=== PATIENT | male | born 1960 | race Caucasian/White ===

== ENCOUNTER → 2016-10-09 14:29 | Outpatient (CLI) | payer BC | END | disposition home or self-care (01) | LOC: D.MRI 14:29 | DX: M54.32 Sciatica, left side (principal) ==

== ENCOUNTER 2017-12-19 10:43 | Emergency (ER) | payer BC ==
[~2017-12-19] VITALS: Ht 182.9 cm; Wt 95.5 kg
[2017-12-19 10:55] VITALS: Ht 182.9 cm; Wt 95.5 kg
[2017-12-19] MEDS ORDERED: DEXILANT30 MG PO (10:56)
[2017-12-19] MEDS ORDERED: CRESTOR5 MG PO (10:56)
[2017-12-19] MEDS ORDERED: PROVENTIL HFA6.7 GM INH (10:57)
[2017-12-19] MEDS ORDERED: LEVOXYL75 MCG PO (10:57)
[2017-12-19 11:26] LABS: BASOPHILS 0.2 % (0-2); EOSINOPHILS 2.4 % (0-7); HEMATOCRIT 43.3 % (42.0-54.0); HEMOGLOBIN 15.4 g/dL (13.5-17.5); IMMATURE GRANULOCYTES 0.2 % (0-5); LYMPHOCYTES 23.5 % (15-50); MCH 33.3 pg (26.0-34.0); MCHC 35.6 g/dL (31.0-37.0); MCV 93.7 fL (80.0-100.0); MONOCYTES 8.9 % (2-11); NEUTROPHILS 64.8 % (40-80); PLATELET COUNT 183 10x3/uL (130-400); RBC 4.62 10x6/uL (4.20-6.10); RDW 13.1 % (11.5-14.5); WBC 5.8 10x3/uL (4.8-10.8)
[2017-12-19 11:43] LABS: INR 0.87 (0.85-1.17); PROTIME 11.5 SECONDS (11.6-15.0)
[2017-12-19 11:45] LABS: D-DIMER-QUANTITATIVE < 0.27 ug/mLFEU (0.20-0.54)
[2017-12-19 11:49] LABS: ALBUMIN 3.7 g/dL (3.4-5.0); ALKALINE PHOSPHATASE 68 U/L (46-116); ALT (SGPT) 30 U/L (10-68); BILIRUBIN - TOTAL 0.87 mg/dL (0.2-1.3); CALC OSMOLALITY 282 mosm/kg (275-300); CALCIUM 9.4 mg/dL (8.5-10.1); CARBON DIOXIDE 25.4 mmol/L (21.0-32.0); CHLORIDE - SERUM 104 mmol/L (98-107); CREATININE - SERUM 1.2 mg/dL (0.6-1.3); GLUCOSE 123 mg/dL (74-106); POTASSIUM - SERUM 3.9 mmol/L (3.5-5.1); PROTEIN - SERUM 7.7 g/dL (6.4-8.2); SODIUM 141 mmol/L (136-145); UREA NITROGEN 14 mg/dL (7-18); eGFR NON AFRICAN AMERICAN 66 mL/min (90-120)
[2017-12-19 11:59] LABS: CKMB 0.5 U/L (0.0-3.6); CREATINE KINASE 71 UL (21-232); PRO BNP 65 pg/mL (0-125); TROPONIN-I < 0.017 ng/mL (0.000-0.060)
[2017-12-19] MEDS ORDERED: QVAR8.7 GM INH (13:40)
[2017-12-19] MEDS ORDERED: ATIVAN1 MG PO (13:40)
[2017-12-19 14:02] VITALS: BP 138/86
== END 2017-12-19 14:13 | disposition home or self-care (01) ==
LOC: D.ER 10:43
PROVIDERS: Family Medicine
DX: Z87.09 Personal history of other diseases of the respiratory system (principal); F41.9 Anxiety disorder, unspecified; R07.89 Other chest pain; E07.9 Disorder of thyroid, unspecified; K21.9 Gastro-esophageal reflux disease without esophagitis

== ENCOUNTER → 2017-12-31 08:36 | Outpatient (CLI) | payer BC ==
[2017-12-19 10:55] VITALS: BMI 28.5
[~2017-12-31 08:36] MED LIST: ATIVAN1 MG PO; CRESTOR5 MG PO; DEXILANT30 MG PO; LEVOXYL75 MCG PO; PROVENTIL HFA6.7 GM INH; QVAR8.7 GM INH
== END | disposition home or self-care (01) ==
LOC: D.CT 08:36
DX: R51 Headache (principal); F39 Unspecified mood [affective] disorder

== ENCOUNTER 2018-03-18 16:25 | Emergency (ER) | payer BC ==
[~2018-03-18] VITALS: Ht 182.9 cm; Wt 95.5 kg
[2018-03-18 16:31] VITALS: Ht 182.9 cm; Wt 95.5 kg
[2018-03-18 18:40] VITALS: BP 169/110
== END 2018-03-18 18:41 | disposition home or self-care (01) ==
LOC: D.ER 16:25
DX: S06.0X0A Concussion without loss of consciousness, initial encounter (principal); W22.8XXA Striking against or struck by other objects, initial encounter; Y93.89 Activity, other specified; Y92.89 Other specified places as the place of occurrence of the external cause; S00.81XA Abrasion of other part of head, initial encounter; S00.83XA Contusion of other part of head, initial encounter

== ENCOUNTER → 2019-03-29 11:13 | Outpatient (CLI) | payer BC ==
[2018-03-18 16:31] VITALS: BMI 28.5
[~2019-03-29 11:13] MED LIST changes: +ADDERALL 10 MG10 MG PO; +DURICEF500 MG PO; +HYDROCODONE-A1 UDTA2 PO; +HYDROXYZINE HCL50 MG; +MOBIC7.5 MG PO; +PERCOCET 5-3251 TAB PO
[2019-04-01 12:51] VITALS: BMI 25.1
== END | disposition home or self-care (01) ==
LOC: D.MRI 11:13
PROVIDERS: ATTEND Orthopaedic Surgery
DX: S92.901A Unspecified fracture of right foot, initial encounter for closed fracture (principal)

== ENCOUNTER 2019-04-01 10:53 | Day surgery (SDC) | payer BC ==
[~2019-04-01] VITALS: Ht 185.4 cm; Wt 86.2 kg
[~2019-04-01 10:53] MED LIST changes: -DURICEF500 MG PO; -HYDROXYZINE HCL50 MG; -PERCOCET 5-3251 TAB PO
[2019-04-01] MEDS ORDERED: HYDROXYZINE HCL50 MG (12:25)
[2019-04-01 12:51] VITALS: BP 141/90; Ht 185.4 cm; Wt 86.2 kg
[2019-04-01] MEDS ORDERED: PERCOCET 5-3251 TAB PO (17:23)
[2019-04-01] MEDS ORDERED: DURICEF500 MG PO (17:26)
--- NOTE | 2019-04-01 18:37 | NUR ---
PATIENT HAS CRUTCHES AND KNEE SCOOTER IN ROOM. DUE TO LOWER EXTREMITY PERIPHERAL NERVE BLOCK AND NUMBNESS TO RLE, THIS NURSE ASKS PATIENT IF HE HAS ACCESS TO A WALKER. PATIENT STATES THAT HE HAS ACCESS TO A WALKER BECAUSE HE OWNS A MEDICAL EQUIPMENT STORE BUT DOESN'T WANT TO USE ONE. EDUCATION PROVIDED ABOUT AMBULATING WHILE PERIPHERAL NERVE BLOCK IS IN EFFECT AND ADVISED THAT USING CRUTCHES IS VERY DIFFICULT WHILE AN EXTREMITY IS NUMB AND A FALL IS VERY LIKELY. SPOUSE STATES UNDERSTANDING WHILE PATIENT IS STILL RESISTANT TO USING A WALKER. SPOUSE LEAVES TO GO TO MEDICAL EQUIPMENT STORE TO GET WALKER FOR HOME USE.
--- NOTE | 2019-04-04 17:22 | OP ---
PATIENT NAME: KATE RITTER MEDICAL RECORD: [id number] :56 LOCATION:[facility] ADMISSION DATE: SURGEON: RAJESH JAY DO DATE OF OPERATION: 04/01/2019 PROCEDURE PERFORMED: Right 1st and 2nd tarsometatarsal fusion. PREOPERATIVE DIAGNOSES: Right foot Lisfranc fracture and ligament injury. POSTOPERATIVE DIAGNOSES: Right foot Lisfranc fracture and ligament injury. INDICATIONS: Mr. Ritter is a 58-year-old male who stubbed his foot on a piece of furniture last week. He had pain and swelling and it hurt him very bad. He came to my office. X-rays were taken. He was seen to have widening in the first and second metatarsal space. MRI was done showing a fracture at the base of the second metatarsal and complete attenuation of the Lisfranc ligament. I informed him of those things. He also had had a severe first MTP joint arthritis. Due to his situation and arthritis already in his foot and his age, discussed fusion with him. He was okay with that and was aware of the risks including infection, bleeding, nonunion, malunion, need for further surgery, loss of sensation in the foot and blood clots, and even and he signed the consent. SURGEON: Rajesh Jay DO DESCRIPTION OF PROCEDURE: The patient was given a block by anesthesia and taken to the operative suite and placed in the supine position, given general anesthetic. The patient was given 2 grams Ancef and he was sedated and LMA was placed. The right lower extremity was then prepped and draped in sterile fashion. A timeout was performed, everyone was in agreement with the correct side, site, patient and procedure. An Esmarch was then used to exsanguinate the right lower extremity, the tourniquet was inflated up to 350 mmHg. It was up for 80 minutes. The incision was marked out over the lateral third of the first metatarsal and middle cuneiform. Incision was made down to the extensor hallucis longus and extensor hallucis brevis, interval was formed between them. The joints between the first metatarsal and the middle cuneiform and the second metatarsal and middle cuneiform were then opened. A Hintermann was used to open the joint and hold it open while the cartilage was denuded and taken off on all the joint surfaces including the most inferior part of the first metatarsal. A drill bit was then used to drill holes in the bone as to give bone bleeding for the fusion. The same process was repeated in the second metatarsal middle cuneiform joint and the cartilage between the first and second metatarsals. A [id number]-ay-[id number] was then used to reduce the Lisfranc joint and a K-wire shot through the middle cuneiform into the second metatarsal holding the reduction. Lisfranc bridge locking plate was then placed. Once a good position confirmed on AP and lateral, the most peripheral cortical screws and compression screws were all put in, all 4 of them, and sequentially compressed down compressing the knee fusion. Four more locking screws then put in and 1 in the first metatarsal and 1 in the second metatarsal and 1 in the middle cuneiform and 1 in the medial cuneiform. These were confirmed to be in good position on AP and lateral x-ray and oblique and holding reduction of the Lisfranc joint. The tourniquet was then let down. Any bleeding was coagulated with a pickup and a Bovie and the OPERATIVE REPORT [id number] KATE RITTER skin was then closed with 3-0 Vicryl in inverted interrupted fashion and 4-0 nylon in a horizontal mattress fashion on the skin. This was then dressed with Adaptic, 4 x 4s, ABD, cast padding, and Lupillo wraps. The patient was then awakened and taken to the recovery in stable condition. ESTIMATED BLOOD LOSS: Minimal. COMPLICATIONS: None. TRANSINT:[id number] Voice Confirmation ID: [id number] DOCUMENT ID: [id number] RAJESH JAY DO at 1722 CC: [id number] DICTATION DATE: 04/01/19 1738 MULTI TOWNSHIP ASSESSOR: 04/02/19 0154 [facility] 04/01/19 [facility] [address] [id number]
== END 2019-04-01 19:20 | disposition home or self-care (01) ==
LOC: D.OPS 10:53 → D.PAN 14:00 → D.OPS 19:20
PROVIDERS: ATTEND Orthopaedic Surgery
DX: S92.901A Unspecified fracture of right foot, initial encounter for closed fracture (principal); M24.275 Disorder of ligament, left foot

== ENCOUNTER → 2019-06-15 07:57 | Outpatient (CLI) | payer BC ==
[2019-04-01 12:51] VITALS: BMI 25.1
[~2019-06-15 07:57] MED LIST changes: +DURICEF500 MG PO; +HYDROXYZINE HCL50 MG; +PERCOCET 5-3251 TAB PO
== END | disposition home or self-care (01) ==
LOC: D.MRI 06-14 09:00
PROVIDERS: ATTEND Family Medicine
DX: M50.10 Cervical disc disorder with radiculopathy, unspecified cervical region (principal)

== ENCOUNTER → 2020-01-25 07:35 | Outpatient (CLI) | payer BC ==
[2019-04-01 12:51] VITALS: BMI 25.1
== END | disposition home or self-care (01) ==
LOC: D.MRI 07:35
PROVIDERS: ATTEND Orthopaedic Surgery
DX: M23.307 Other meniscus derangements, unspecified meniscus, left knee (principal)

== ENCOUNTER 2020-02-15 09:54 | Observation (INO) | payer BC ==
[~2020-02-15] VITALS: Ht 182.9 cm; Wt 87.0 kg
[2020-02-15] MEDS ORDERED: BYSTOLIC5 MG PO (10:11)
[2020-02-15 10:24] LABS: BASOPHILS 0.4 % (0-2); EOSINOPHILS 1.8 % (0-7); HEMATOCRIT 41.8 % (42.0-54.0); HEMOGLOBIN 14.6 g/dL (13.5-17.5); IMMATURE GRANULOCYTES 0.2 % (0-5); LYMPHOCYTES 21.9 % (15-50); MCH 33.6 pg (26.0-34.0); MCHC 34.9 g/dL (31.0-37.0); MCV 96.1 fL (80.0-100.0); MEAN PLATELET VOLUME 9.6 fL (7.4-10.4); MONOCYTES 5.4 % (2-11); NEUTROPHILS 70.3 % (40-80); PLATELET COUNT 170 10x3/uL (130-400); RBC 4.35 10x6/uL (4.20-6.10); RDW 12.4 % (11.5-14.5); WBC 5.7 10x3/uL (4.8-10.8)
[2020-02-15 10:32] VITALS: BP 131/81
[2020-02-15 10:40] LABS: CALC OSMOLALITY 278 mosm/kg (275-300); CALCIUM 9.3 mg/dL (8.5-10.1); CARBON DIOXIDE 22.2 mmol/L (21.0-32.0); CHLORIDE - SERUM 104 mmol/L (98-107); CREATININE - SERUM 1.2 mg/dL (0.6-1.3); GLUCOSE 126 mg/dL (74-106); POTASSIUM - SERUM 3.8 mmol/L (3.5-5.1); SODIUM 137 mmol/L (136-145); UREA NITROGEN 20 mg/dL (7-18); eGFR NON AFRICAN AMERICAN 65 mL/min (90-120)
[2020-02-15 10:50] LABS: APTT 27.3 SECONDS (22.8-39.4); INR 0.9 (0.85-1.17); PROTIME 12.1 SECONDS (11.6-15.0)
[2020-02-15 10:56] LABS: ALBUMIN 4.1 g/dL (3.4-5.0); ALKALINE PHOSPHATASE 78 U/L (30-120); ALT (SGPT) 39 U/L (10-68); BILIRUBIN - TOTAL 0.55 mg/dL (0.2-1.3); CKMB 1.9 U/L (0.0-3.6); CREATINE KINASE 146 UL (21-232); MAGNESIUM - SERUM 2.1 mg/dL (1.8-2.4); PROTEIN - SERUM 7.7 g/dL (6.4-8.2); TROPONIN-I < 0.017 ng/mL (0.000-0.060)
[2020-02-15 11:11] VITALS: BP 137/82
[2020-02-15 12:56] VITALS: BP 126/74
--- NOTE | 2020-02-15 13:24 | NUR ---
CALLED REPORT TO LEESA WARREN AT THIS TIME.
[2020-02-15] MEDS ORDERED: VIIBRYD10 MG PO (16:32)
[2020-02-15 16:37] VITALS: BP 145/80; Ht 182.9 cm; Wt 87.0 kg
--- NOTE | 2020-02-15 17:00 | NUR ---
RECEIVED PT FROM STRESS TEST. PT IS AAO AND UP AD CHARLES. NO S/S OF DISTRESS NOTED. CALL LIGHT W/I REACH. QUICKSTART, HISTORY, MED REQ, ASSESSMENT COMPLETE. FAMILY AT BEDSIDE. TELEMETRY APPLIED. 12 LEAD COMPLETE. WILL CTM.
[2020-02-15 17:56] LABS: CKMB 1.4 U/L (0.0-3.6); CREATINE KINASE 125 UL (21-232)
[2020-02-15 18:01] LABS: TROPONIN-I < 0.017 ng/mL (0.000-0.060)
[2020-02-15 20:00] VITALS: BP 146/78
[2020-02-15 21:29] LABS: CKMB 1.2 U/L (0.0-3.6); CREATINE KINASE 107 UL (21-232)
[2020-02-15 21:31] LABS: TROPONIN-I < 0.017 ng/mL (0.000-0.060)
[2020-02-16] VITALS: BP 122/78
--- NOTE | 2020-02-16 03:54 | NUR ---
I have reviewed this patient and I concur with the Shift Assessment completed by the Licensed Practical Nurse today this shift.
[2020-02-16 04:00] VITALS: BP 122/77
[2020-02-16 05:53] LABS: BASOPHILS 0.2 % (0-2); EOSINOPHILS 2.9 % (0-7); HEMATOCRIT 41.9 % (42.0-54.0); HEMOGLOBIN 14.3 g/dL (13.5-17.5); LYMPHOCYTES 34.1 % (15-50); MCH 32.9 pg (26.0-34.0); MCHC 34.1 g/dL (31.0-37.0); MCV 96.5 fL (80.0-100.0); NEUTROPHILS 54.8 % (40-80); PLATELET COUNT 150 10x3/uL (130-400); RBC 4.34 10x6/uL (4.20-6.10); RDW 12.5 % (11.5-14.5)
[2020-02-16 06:02] LABS: WBC 4.1 10x3/uL (4.8-10.8)
[2020-02-16 06:17] LABS: CALC OSMOLALITY 282 mosm/kg (275-300); CALCIUM 8.2 mg/dL (8.5-10.1); CHLORIDE - SERUM 105 mmol/L (98-107); CKMB 0.8 U/L (0.0-3.6); CREATINE KINASE 86 UL (21-232); CREATININE - SERUM 1.1 mg/dL (0.6-1.3); GLUCOSE 100 mg/dL (74-106); POTASSIUM - SERUM 3.9 mmol/L (3.5-5.1); SODIUM 141 mmol/L (136-145); UREA NITROGEN 19 mg/dL (7-18); eGFR NON AFRICAN AMERICAN 72 mL/min (90-120)
[2020-02-16 06:25] LABS: TROPONIN-I < 0.017 ng/mL (0.000-0.060)
--- NOTE | 2020-02-16 08:20 | HP ---
PATIENT: KATE RITTER MEDICAL RECORD: [id number] ACCOUNT: [id number] LOCATION:[address] : 56 ADMISSION DATE: 02/15/20 PCP: SUNIL NELSON MD HISTORY AND PHYSICAL EXAMINATION REASON FOR ADMISSION: Chest pain. HISTORY OF PRESENT ILLNESS: The patient is a 59-year-old male with history of hyperlipidemia, hypertension, which has been volatile recently. He was recently placed on Bystolic with improvement in his blood pressure. He is also been under extreme stress due to family situations and his brother dying abruptly. He states he had some reflux symptoms last night, which is chronic, awakened about 3:00 a.m. with off and on sharp substernal chest pains into the left chest and shoulder. It would come and go rapidly not associated with shortness of breath, diaphoresis, nausea, or vomiting. For this reason he called the office and was advised to come to the Emergency Room. He denies any recent exertional chest pain or extreme fatigue. PAST MEDICAL HISTORY: Hyperlipidemia, hypertension, anxiety, depression, chronic sinusitis, allergic rhinitis, GERD, glucose intolerance, hypogonadism, osteoarthritis, hypertriglyceridemia, spondylolisthesis to lumbar spine, history of shoulder dislocation, gout, and hypothyroidism. PAST SURGICAL HISTORY: Appendectomy, cholecystectomy, left Achilles repair, lumbar fusion and repair, right thumb and wrist fracture, and right rotator cuff with repair. FAMILY HISTORY: Brother recently, he had heart disease. Father at 72 of hypertension complications. Mother at 82 from acute myocardial infarction, CAD, and hypertension. SOCIAL HISTORY: Remote smoker. He drinks wine nightly. He is . He has a [employer] business. MEDICATIONS: Currently, 1. Bystolic 5 mg daily. 2. Viibryd 20 mg daily. 3. Dexilant 60 mg b.i.d. 4. Levothyroxine 75 mcg p.o. q.a.m. a.c. 5. Crestor 40 mg at bedtime. 6. AndroGel topically 4 squirts applied to skin daily. 7. Colchicine 0.6 mg p.r.n. gout. REVIEW OF SYSTEMS: GENERAL: He has been fatigued and stressed recently. No weight change or fever. HEENT: No recent visual change, sinus congestion, or sore throat. RESPIRATORY: No SOB or cough. CARDIAC: He has had no exertional chest pain, but did experience sharp chest pains last night at rest. It did radiate in the left precordial area and into the left upper shoulder. GASTROINTESTINAL: Has chronic dyspepsia clinically stable on maximum PPI therapy. No recent change in stools or blood per rectum. GENITOURINARY: Nocturia once nightly. No ED. ENDOCRINE: No polyuria, polydipsia, heat or cold intolerance. HISTORY AND PHYSICAL [id number] KATE RITTER NEUROLOGIC: No history of stroke, TIA, or vascular headaches. INTEGUMENT: No rash or itching. PSYCHIATRIC: Admits to depressed mood, but no suicidal thoughts currently. PHYSICAL EXAMINATION: VITAL SIGNS: Blood pressure is 126/78, weight is 202 pounds, height 72 inches, BMI 27.4, heart rate 62 and regular. The patient is alert and oriented at this time, he is not in acute distress. HEENT: Unremarkable. NECK: Supple, without masses or bruits. CHEST: Distant breath sounds without wheeze or rales. Chest wall nontender. Pain is not reproducible. HEART: Regular rate without MGR. PMI appropriate. ABDOMEN: Soft, scaphoid, nontender, no masses. GENITOURINARY: Deferred. EXTREMITIES: No CC&E. NEUROLOGICAL: Oriented to person, place, and time. Cranial nerves intact. Gait was not tested. No localizing motor deficits are appreciated. LABORATORY DATA: CBC and cardiac enzymes are negative. EKG shows no acute changes. Chest x-ray unremarkable. ASSESSMENT: 1. Atypical chest pain. 2. Significant cardiac risk factors with hyperlipidemia, hypertension positive family history, diabetes mellitus, anxiety and stress and male sex. 3. GERD. 4. Hypogonadism. 5. Hypothyroidism. PLAN: The patient admitted for serial cardiac enzymes, initially are negative. We will have cardiology consult with echocardiogram and possible Cardiolite stress test. The patient is currently chest pain free. TRANSINT:[id number] Voice Confirmation ID: [id number] DOCUMENT ID: [id number] SUNIL NELSON MD at 0820 CC: [id number] DICTATION DATE: 02/15/20 1335 COMPENSATION BUSINESS PARTNER: 02/15/20 [address] [place] [address]
--- NOTE | 2020-02-16 09:26 | NUR ---
PT DISCHARGED HOME VIA WHEELCHAIR WITH FAMILY. PIV REMOVED WITH CATHETER TIP FULLY INTACT. PT SIGNED PROPER DISCHARGE INSTRUCTIONS AND REMOVED ALL VALUABLES FROM THE ROOM. TELEMETRY REMOVED AND RETURNED.
--- NOTE | 2020-02-17 11:30 | EC ---
PATIENT:KATE RITTER DATE OF SERVICE: 02/15/20 SEX: M MEDICAL RECORD: [id number] DATE OF : 56 LOCATION:D.M2 D.212 AGE OF PATIENT: 59 ADMISSION DATE: 02/15/20 REFERRING PHYSICIAN: INTERPRETING PHYSICIAN: JUAN KEATING MD ECHOCARDIOGRAM REPORT ECHO CHARGES 4 ECHO COMPLETE Date: 02/15/20 CLINICAL DIAGNOSIS: HTN ECHOCARDIOGRAPHIC MEASUREMENTS (adult normal given) AC root (d.<3.7cm) 3.6 cm LV Septum d (<1.2 cm> 0.9 cm Valve Excursion 1.7 cm LV Septum (systole) 1.1 cm Left Atria (s.<4.0cm> 3.8 cm LVPW d(<1.2cm) 1.1 cm RV (d.<2.3cm) 2.7 cm LVPW (sytole) 1.2 cm LV diastole(<5.6CM) 4.2 cm MV E-F(>70mm/sec) cm LV systole 3.7 cm LVOT Diameter 1.6 cm MV exc.(>10mm) cm Est.ejection fraction (50-75%) % DOPPLER: LVIT cm/sec A 56 cm/sec E 45 cm/sec LA cm/sec RVSP 15.6 mmHg LVOT 51 cm/sec AOP1/2T m/s Asc. Ao 95 cm/sec RVOT 54 cm/sec RA cm/sec PA 64 cm/sec AV Gradient Peak 3.6 mmHg AV Mean 1.8 mmHg AV Area 1.4 cm MV Gradient Peak 1.9 mmHg MV Mean 0.8 mmHg MV Area cm COMMENTS: Senior Science Consultant: uLke MOODY Client Portfolio Manager: 3 Dr. Peacock TAPE# PACS Pericardial Effusion N DATE OF SERVICE: 02/16/2020 Adequate 2D, color flow imaging, spectral Doppler, and M-Mode. No LVH. LV internal dimensions are normal. Wall motion normal. EF greater than or equal to 55%. Aortic valve is tricuspid. No evidence of stenosis by Doppler interrogation. Left atrium is normal. Mitral valve shows no prolapse. Trivial MR. Right-sided chambers are grossly normal. Trivial TR. TRANSINT:[id number] Voice Confirmation ID: [id number] DOCUMENT ID: [id number] ECHOCARDIOGRAM REPORT [id number] KATE RITTER JUAN KEATING MD at 1130 CC: [id number] DICTATION DATE: 02/16/20821 [employer]IL[employer] EMERGENCY SERVICES MANAGER: 02/16/20 1201 [facility] 02/16/20 [id number] [place] [address]
== END 2020-02-16 09:41 | disposition home or self-care (01) ==
LOC: D.ER 09:54 → D.EDHOLD 11:39 → D.M2 11:39 → OBSVTIME 11:40 → D.M2 12:49
PROVIDERS: Family Medicine; ADMIT Family Medicine; ATTEND Family Medicine
DX: R07.9 Chest pain, unspecified (principal); I10 Essential (primary) hypertension; R91.1 Solitary pulmonary nodule; F32.9 Major depressive disorder, single episode, unspecified; Z82.49 Family history of ischemic heart disease and other diseases of the circulatory system

== ENCOUNTER → 2020-02-28 15:55 | Outpatient (CLI) | payer BC ==
[2020-02-15 16:37] VITALS: BMI 26.0
[~2020-02-28 15:55] MED LIST changes: +BYSTOLIC5 MG PO; +VIIBRYD10 MG PO
== END | disposition home or self-care (01) ==
LOC: D.LAB 15:45
PROVIDERS: ATTEND Internal Medicine Cardiovascular Disease
DX: Z11.59 Encounter for screening for other viral diseases (principal); Z20.828 Contact with and (suspected) exposure to other viral communicable diseases; R93.89 Abnormal findings on diagnostic imaging of other specified body structures; R06.00 Dyspnea, unspecified; R91.1 Solitary pulmonary nodule

== ENCOUNTER → 2020-02-29 13:37 | Outpatient (CLI) | payer BC ==
[2020-02-15 16:37] VITALS: BMI 26.0
== END | disposition home or self-care (01) ==
LOC: D.RT 13:37
PROVIDERS: ATTEND Internal Medicine Cardiovascular Disease
DX: Z11.59 Encounter for screening for other viral diseases (principal); R91.1 Solitary pulmonary nodule; R06.00 Dyspnea, unspecified; R93.89 Abnormal findings on diagnostic imaging of other specified body structures

== ENCOUNTER 2020-03-05 12:05 | Day surgery (SDC) | payer BC ==
[~2020-03-05] VITALS: Ht 182.9 cm; Wt 91.4 kg
--- NOTE | ~2020-03-05 | HEMODYNAMI ---
PATIENT:KATE RITTER MEDICAL RECORD: [id number] : 56 LOCATION:[facility] ADMISSION DATE: 03/05/20 Generatedon:03/06/20209:25 Patient name: KATE RITTER Patient #: [id number] : 1960 Date of study: 03/05/2020 Page: Of Hemodynamic Procedure Report Patient Data Patient Demographics Procedure consent was obtained First Name: KATE Gender: Male Last Name: RIYA : 1960 [facility] Initial: CONNER Age: 59 year(s) Patient #: [id number] Race: SSN: [id number] Additional ID: [id number] Contact details Address: [address] [place] [address] State: [place] City: [facility] Zip code: [address] Past Medical History Allergies Allergen Reaction Date Comments Reported Other allergy 03/05/2020 sulfa, neomyacin, vancomyacin Admission Admission Data Admission Date: 03/05/2020 Admission Time: 12:05 Arrival Date: 03/05/2020 Arrival Time: 14:00 Admit Source: Other Insurance Payor: Private health insurance [facility] #: [id number] Height (in.): 71.65 BSA: 2.13 (m2) Height (cm.): 182 BMI: 27.47 (kg/m2) Weight (lbs.): 200.62 Weight (kg.): 91 Lab Results Lab Result Date: 03/05/2020 Lab Result Time: 0:00 Biochemistry Name Units Result Min Max BUN mg/dl 17 --(---*)-- 7 18 Creatinine mg/dl 1.3 --(---*)-- 0.6 1.3 eGFR ml/min 60 *-(----)-- 90 120 NONAFRICAN CBC Name Units Result Min Max Hematocrit % 40.1 -*(----)-- 42 54 Hemoglobin g/dl 13.7 --(*---)-- 13.5 17.5 Procedure Procedure Types Cath Procedure Diagnostic Procedure [facility] w/Coronaries Sedation Charges Moderate Sedation up to 30 minutes PCI Procedure Coronary Stent Coronary Stent Initial Procedure Description Procedure Date Procedure Date: 03/05/2020 Procedure Start Time: 14:35 Procedure End Time: 15:14 Procedure Staff Name Function Isabel Hagen RT Scrub Shelbie Coe RN Nurse Prince Moraes MD Performing Physician Drea Guadarrama RT Monitor Procedure Data Cath Procedure Fluoroscopy Diagnostic fluoroscopy Total fluoroscopy Time: time: 14.1 min 14.1 min Diagnostic fluoroscopy Total fluoroscopy dose: dose: 1714 mGy 1714 mGy Contrast Material Contrast Material Type Amount (ml) Isovue 370 151 Entry Location Entry Primary Successful Side Size Upsize Upsize Entry Closure Cuevas ccessful Closure Location (Fr) 1 (Fr) 2 (Fr) Remarks Device Remarks Radial Right 6 Fr Mechanical artery Short Compression Estimated blood loss: 10 ml Diagnostic catheters Device Type Used For End Catheter Placement DIAGNOSTIC Rajan 110cm Procedure 5Fr catheter ([id number]) Procedure Complications No complications Procedure Medications Medication Administration Route Dosage Oxygen etCO2 Nasal cannula 2 l/min Lidocaine 2% added to field 20 Heparin Flush Bag added to field 2 bags (1000units/500ml NS) 0.9% NaCl I.V. 100 ml/hr Radial Cocktail I.A. 1 syringe (Verapamil 2mg/Nitro 400mcg/Heparin 1500units) Versed I.V. 2 mg Fentanyl I.V. 100 mcg Versed I.V. 1 mg Fentanyl I.V. 50 mcg Versed I.V. 1 mg Fentanyl I.V. 50 mcg Heparin Bolus I.V. 9000 units Plavix P.O. 600 mg Hemodynamics Rest HGB: 13.7 (g/dl) Heart Rate: 62 (bpm) Pressure Samples Time Site Value (mmHg) Purpose Heart Use Rate(bpm) 14:39 LV 145/7,40 Snapshot 71 Gradients Valve Time Site Site Mean SEP/DFP Peak To Heart Use 1 2 (mmHg) (sec/min) Peak Rate (mmHg) (bpm) Aortic 14:39 LV AO 70 Snapshots Pre Cath Intra NCS Post Cath Vital Signs Time Heart Resp SPO2 etCO2 NIBP (mmHg) Rhythm Pain Sedation Rate (ipm) (%) (mmHg) Status Level (bpm) 14:15:17 62 12 96 34.5 152/81(130) NSR 0 (11) 10(A) , No pain 14:19:31 62 14 98 28.5 144/92(124) NSR 0 (11) 10(A) , No pain 14:23:45 63 11 95 36.8 140/82(99) NSR 0 (11) 10(A) , No pain 14:27:59 59 26 94 42 128/78(101) NSR 0 (11) 10(A) , No pain 14:32:07 62 14 94 27 122/78(97) NSR 0 (11) 10(A) , No pain 14:36:13 60 13 93 36.8 126/80(97) NSR 0 (11) 10(A) , No pain 14:40:23 68 14 93 23.2 111/72(96) NSR 0 (11) 10(A) , No pain 14:44:26 69 14 93 21.7 122/74(93) NSR 0 (11) 10(A) , No pain 14:48:30 66 13 92 36.8 124/86(96) NSR 0 (11) 10(A) , No pain 14:52:40 66 17 92 27.8 126/74(94) NSR 0 (11) 10(A) , No pain 14:56:48 66 17 93 41.3 123/77(100) NSR 0 (11) 10(A) , No pain 15:00:56 67 17 96 36.1 133/76(105) NSR 0 (11) 10(A) , No pain 15:05:05 65 15 95 36 133/83(103) NSR 0 (11) 10(A) , No pain 15:09:13 65 11 98 36 147/85(127) NSR 0 (11) 10(A) , No pain 15:13:25 63 15 98 39.1 155/92(132) NSR 0 (11) 10(A) , No pain Medications Time Medication Route Dose Verified Delivered Reason Not es Effectiveness by by 14:14:19 Oxygen etCO2 2 l/min Prince Buffie used for Nasal Dimitry Coe special procedures nurse cannula 14:14:45 Lidocaine 2% added 20ml Prince Prince for local to vial Dimitry Moraes MD anesthetic field 14:14:51 Heparin Flush added 2 bags Prince Prince used for Bag to Dimitry Moreas MD procedure (1000units/500ml field NS) 14:15:00 0.9% NaCl I.V. 100 Prince Buffie Per physician ml/hr Dimitry Coe RN 14:15:21 Radial Cocktail I.A. 1 Prince Prince for (Verapamil syringe Dimitry Moraes MD vasodilation 2mg/Nitro 400mcg/Hepari 14:32:05 Fentanyl I.V. 100 mcg Prince Buffie for sedation Dimitry Coe RN 14:32:59 Versed I.V. 2 mg Prince Buffie for sedation Dimitry Coe RN 14:40:23 Versed I.V. 1 mg Prince Buffie for sedation Dimitry Coe RN 14:40:29 Fentanyl I.V. 50 mcg Prince Buffie for sedation Dimitry Coe RN 14:45:35 Versed I.V. 1 mg Prince Buffie for sedation Dimirty Coe RN 14:45:39 Fentanyl I.V. 50 mcg Prince Buffie for sedation Dimitry Coe RN 14:51:01 Heparin Bolus I.V. 9000 Prince Buffie for kate ified units Dimitry Coe RN anticoagulation with dr moraes 15:11:00 Plavix P.O. 600 mg Prince Buffie for Dimitry Coe RN antiplatelet therapy Procedure Log Time Note 13:45:58 Diagnostic Cath Status : Elective 13:46:24 Shelbie Coe RN sent for patient. Start room use. 13:46:25 Time tracking: Regular hours (M-F 7:00 - 5:00) 13:46:29 Plan of Care:Hemodynamics will remain stable., Cardiac rhythm will remain stable., Comfort level will be maintained., Respiratory function will remain adequate., Patient/ family verbilizes understanding of procedure., Procedure tolerated without complication., Recovers from procedure without complications.. 13:53:51 Informed consent obtained and on chart 13:56:13 Admit Source: Other 13:56:15 Arrival Date: 03/05/2020 2:00:00 PM 13:56:44 Insurance Payor : Private health insurance 13:58:01 Patient Height : 71.65 inches 13:58:04 Patient Weight : 200.62 lbs 14:05:39 Patient received from Pre/Post Procedure Room to CCL 1 Alert and oriented. Tansferred to table in Supine position. 14:05:40 Warm blankets applied, and leigh hugger turned on for patient comfort. 14:05:41 ECG and BP/O2 sat monitors applied to patient. 14:05:41 Correct patient and procedure confirmed by team. 14:05:51 Pre-procedure instructions explained to patient. 14:05:51 H&P Date Dictated: 02/29/2020 Within 30 days and on chart.. 14:05:52 Pre-op teaching completed and patient verbalized understanding. 14:05:53 Family in waiting room. 14:05:55 Patient NPO since Midnight. 14:06:25 Patient allergic to Other allergysulfa, neomyacin, vancomyacin 14:06:30 Is the patient allergic to Iodine/contrast media? No. 14:12:19 Was the patient premedicated? N/A 14:12:21 Is patient on blood thinner?No 14:12:23 Patient diabetic? No. 14:12:25 If diabetic: On Metformin? N/A 14:12:26 ----Pre-sedation anethsthesia assessment.---- 14:12:29 Previous problem with sedation/anesthesia? No ? 14:12:30 Snore? No 14:12:31 Sleep apnea? No 14:12:33 Deviated septum? No 14:12:35 Sticks out tongue? Yes 14:12:35 Opens mouth fully? Yes 14:12:37 Airway obstruction? No ? 14:12:39 Dentures? No ? 14:12:42 Pre procedure: right dorsailis pedis pulse 2+ Normal; easily identifiable; not easily obliterated 14:12:45 Modified Mark's test Ulnar < 7 seconds 14:12:47 Patient pain scale 0/10 ?. 14:12:54 IV patent on arrival in left antecubital with 0.9% NaCl at O. 14:13:40 Lab Result : Hemoglobin 13.7 g/dl 14:13:40 Lab Result : Hematocrit 40.1 % 14:13:40 Lab Result : eGFR NONAFRICAN 60 ml/min 14:13:40 Lab Result : BUN 17 mg/dl 14:13:40 Lab Result : Creatinine 1.3 mg/dl 14:14:08 Lab results completed and on chart. 14:14:10 Vital chart was started 14:14:19 Oxygen 2 l/min etCO2 Nasal cannula was administered by Shelbie Coe RN; used for procedure; Verbal order read back and verified. 14:14:41 Stress Test: yes; abnormal inferior 14:14:45 Lidocaine 2% 20ml vial added to field was administered by Prince Moraes MD; for local anesthetic; Verbal order read back and verified. 14:14:51 Heparin Flush Bag (1000units/500ml NS) 2 bags added to field was administered by Prince Moraes MD; used for procedure; Verbal order read back and verified. 14:15:00 0.9% NaCl 100 ml/hr I.V. was administered by Shelbie Coe RN; Per physician; Verbal order read back and verified. 14:15:20 Right Radial & Right Groin area was prepped with chlora-prep and draped in sterile fashion 14:15:21 Alarms reviewed by R. N. 14:15:21 Radial Cocktail (Verapamil 2mg/Nitro 400mcg/Heparin 1500units) 1 syringe I.A. was administered by Prince Moraes MD; for vasodilation; Verbal order read back and verified. 14:15:22 Sharps counted by scrub and verified by R.N. 14:15:24 Full Disclosure recording started 14:15:26 Baseline sample Acquired. 14:15:29 Rhythm: sinus rhythm 14:15:32 Use device set Radial Dx or PCI 14:15:34 Medline Cath Pack ([id number]) opened to sterile field. 14:15:34 ACIST Syringe (84915) opened to sterile field. 14:15:35 Bag Decanter () opened to sterile field. 14:15:37 MBrace Wrist Support ([id number]) opened to sterile field. 14:15:39 EMERALD Guide Wire (430-613) opened to sterile field. 14:15:40 SHEATH 6FR RAIN ([id number]) opened to sterile field. 14:15:43 ACIST Hand Control (88338) opened to sterile field. 14:15:44 ACIST Manifold (17055) opened to sterile field. 14:31:46 --------ALL STOP TIME OUT------ 14:31:47 Final Timeout: patient, procedure, and site verified with staff and physician. All members of the team are in agreement. 14:31:50 Right Radial & Right Groin site verified by team. 14:31:53 Fire Safety Assessment: A--An alcohol-based skin anteseptic being used preoperatively., C--Open oxygen or nitrous oxide is being used., D--An ESU, laser, or fiber-optic light is being used. 14:31:57 Physical assessment completed. ASA score P 2 - A patient with mild systemic disease as per Prince Moraes MD. 14:32:01 2) 60-89 Mildly reduced kidney function, and other findings (as for stage 1) point to kidney disease. 14:32:05 Fentanyl 100 mcg I.V. was administered by Shelbie Coe RN; for sedation; Verbal order read back and verified. 14:32:05 Maximum allowable contrast dose (3.7 X eGFR X 0.75)167 ml. 14:32:11 Sedation plan: IV Moderate Sedation Medication:Versed, Fentanyl 14:32:59 Versed 2 mg I.V. was administered by Shelbie Coe RN; for sedation; Verbal order read back and verified. 14:34:05 Procedure started. 14:35:00 Local anesthetic to right radial artery with Lidocaine 2% by Prince Moraes MD.INITIAL ACCESS ONLY 14:35:53 A 6 Fr Short sheath was inserted into the Right Radial artery 14:36:17 A DIAGNOSTIC Rajan 110cm 5Fr catheter ([id number]) was advanced over the wire and used for Procedure. 14:37:07 LV gram done using LAWRENCE 14:37:09 Injector settings: Ml/sec: 5, Volume: 15, 14:38:59 LV hemodynamics recorded. 14:39:22 EF : 60 % 14:39:55 RCA angiography performed. 14:40:01 Injector settings: Ml/sec: 3, Volume: 6, 14:40:23 Versed 1 mg I.V. was administered by Shelbie Coe RN; for sedation; Verbal order read back and verified. 14:40:29 Fentanyl 50 mcg I.V. was administered by Shelbie Coe RN; for sedation; Verbal order read back and verified. 14:40:30 LCA angiography performed. 14:40:34 Injector settings: Ml/sec: 3, Volume: 6, 14:42:03 ACCDominant side:Co-Dominant 14:42:58 Catheter exchanged over wire. 14:43:22 Proceeding to intervention. 14:43:31 Use device set MORAES PCI 14:43:36 INFLATOR Merit BasixCompak (JZ2416) opened to sterile field. 14:43:37 TUBING High Pressure Extension Tubing (Moraes) ([id number]) opened to sterile field. 14:43:39 BMW 300cm [place] 2 J wire ([id number]) opened to sterile field. 14:44:19 GUIDE 6FR AR 1.0 catheter ([id number]) opened to sterile field. 14:45:15 Pre PCI Site: Augustine dRCA has 90% stenosis. 14:45:21 Pre PCI Site: [place] mRCA has 70% stenosis. 14:45:26 6 Fr ar 1.0 guide catheter was inserted over the wire 14:45:35 Versed 1 mg I.V. was administered by Shelbie Coe RN; for sedation; Verbal order read back and verified. 14:45:39 Fentanyl 50 mcg I.V. was administered by Shelbie Coe RN; for sedation; Verbal order read back and verified. 14:47:40 BMW 300 wire advanced. 14:48:56 Wire removed. 14:48:57 Guide catheter removed. 14:49:23 GUIDE 6FR JR 4.0 catheter ([id number]) opened to sterile field. 14:51:01 Heparin Bolus 9000 units I.V. was administered by Shelbie Coe RN; for anticoagulation; verified with dr moraes Verbal order read back and verified. 14:51:58 WHISPER 300 wire advanced. 14:55:00 Wire advanced across lesion. 14:58:35 Asahi Minamo 300cm wire opened to sterile field. 15:00:03 BARBARA WIRE INSERTED IN PDA . 15:01:44 BARBARA WIRE REMOVED. 15:03:30 Place stent Inflation Number: 1 A INTEGRITY RX 3.0 x 18 stent ([id number]) was prepped and advanced across the Dist RCA 90. The stent was deployed at 13 JEAN for 0:00 (min:sec) . 15:04:44 Stent catheter was removed intact over wire. 15:07:53 Place stent Inflation Number: 1 A INTEGRITY RX 3.5 x 18 stent ([id number]) was prepped and advanced across the Mid RCA1 70. The stent was deployed at 13 JEAN for 0:00 (min:sec) . 15:08:35 Stent catheter was removed intact over wire. 15:08:36 Guide catheter removed. 15:08:36 Wire removed. 15:08:47 ZEPHYR REGULAR TR BAND (993502) opened to sterile field. 15:09:00 Sheath removed intact; hemostasis achieved with Mechanical Compression to the Right Radial artery. 15:09:33 Procedure ended.(Physican Out) 15:09:54 Fluoroscopy time 14.10 minutes. 15::57 Fluoroscopy dose: 1714 mGy 15::57 Flurop Dose total: 1714 15:10:03 Dose Area Product 73588 mGy/cm. 15:10:07 Contrast amount:Isovue 370 151ml. 15:10:11 Maximum allowable dose exceeded? No. 15:10:13 Sharps counted by scrub and verified by R.N. 15:10:18 Post Procedure Pulses reassessed and unchanged 15:10:21 Post procedure: right dorsailis pedis pulse 2+ Normal; easily identifiable; not easily obliterated. 15:10:25 Post-procedure physical assessment completed. ASA score P 2 - A patient with mild systemic disease as per Prince Moraes MD. 15:10:27 George band inflated with 14cc of air. 15:10:32 Post procedure rhythm: unchanged. 15:10:34 Estimated blood loss: 10 ml 15:10:36 Patient needs reinforcement of post procedure teaching. 15:10:36 Post procedure instruction explained to patient.Patient verbalizes understanding. 15:11:00 Plavix 600 mg P.O. was administered by Shelbie Coe RN; for antiplatelet therapy; Verbal order read back and verified. 15:11:17 Procedure type changed to Cath procedure, Diagnostic procedure, LHC, [facility] w/Coronaries, Sedation Charges, Moderate Sedation up to 30 minutes, PCI procedure, Coronary Stent, Coronary Stent Initial 15:12:15 Procedure and supply charges have been captured, reviewed, submitted and are correct. 15:12:19 Procedure Complication : No complications 15:12:23 [facility] Findings: MVD- PCI performed (see procedure note) 15:12:26 See physician's report for complete and final results. 15:12:26 Operative report dictated upon procedure completion. 15:12:28 Report given to Pre/Post Procedure Room. 15:12:32 Patient transfered to Pre/Post Procedure Room with Stretcher. 15:12:36 ACC-PCI Only Patient was given prescriptions, or instructed by Prince Moraes MD to start/continue the following medications upon discharge: Plavix 15:14:17 Vital chart was stopped 15:14:20 Full Disclosure recording stopped 15:14:20 Procedure ended. 15:14:34 End room use (Document Last) 15:14:49 ACT drawn and resulted at out of range high seconds. (normal therapeutic range 180-240 seconds). 15:15:00 End room use (Document Last) 15:15:15 End room use (Document Last) 9:24:06 Late Entry by Shelbie Coe RN. 1516- Zofran 4 mg IV given per verbal order by Dimitry Mercedes due to pt became nauseated . Continued to transport to recovery after medication given by Shelbie Coe RN. Intervention Summary Intervention Notes Time ActionType Lesion and Equipment Action# Pressure Duration Attributes Used 15:03:30 Place stent Dist RCA INTEGRITY RX 1 13 00:00 3.0 x 18 stent ([id number]) 15:07:53 Place stent Mid RCA1 INTEGRITY RX 1 13 00:00 3.5 x 18 stent ([id number]) Device Usage Item Name Manufacture Quantity Catalog Hospital Part Current Minim al Lot# / Number Charge Number Stock Stock Serial# Code ACIST Acist 1 00074 300693 443245 286556 20 Syringe Medical (07371) Systems Inc Medline Cath Medline 1 [id number] 875123 21103 038543 5 Pack ([id number]) Bag Decanter Microtek 1 233676 27816 022903 5 () Medical Inc. MBrace Wrist Advanced 1 140-0250-00 549939 05352 209734 5 Support Vascular (554454873) Dynamics EMERALD Cardinal 1 943-455 955622 509833 469828 5 Guide Wire Health (920-464) SHEATH 6FR Cardinal 1 2742758 484465 1415801 802159 [address] [facility] Healthcare (6161919) ACIST Hand Acist 1 82587 505767 665279 273494 5 Control Medical (38202) Systems Inc ACIST Acist 1 83301 646402 001914 724883 5 Manifold Medical (44868) Systems Inc DIAGNOSTIC Terumo 1 405023 858872 184305 881002 5 Rajan 110cm 5Fr catheter (455050) INFLATOR Merit 1 YH0058 192198 962697 885032 15 Merit Medical BasixCompak (PW1272) TUBING High Merit 1 [id number] 355966 59613 128313 10 Pressure Medical Extension Tubing (Moraes) (GD9043G) BMW 300cm Levine 1 [id number] 939062 338628 580329 5 [place] 2 Vascular J wire (2028219X) GUIDE 6FR AR Medtronic 1 KJ0YO61 805584 71210 969997 1 1.0 catheter (MH9ND04) GUIDE 6FR JR Medtronic 1 TH6SW16 867395 84524 975804 1 4.0 catheter (KT6BP63) [facility] Inte 1 [id number] 942313 5213020 221603 0 300cm wire INTEGRITY RX Medtronic 1 [id number] 302733 519210 208438 5 [id number] 3.0 x 18 stent ([id number]) INTEGRITY RX Medtronic 1 [id number] 057278 526547 566415 5 [id number] 3.5 x 18 stent ([id number]) ZEPHYR Cardinal 1 949749 179385 1729487 682909 5 REGULAR TR Health BAND (842284) Signature Audit [place] Stage Time Signature Unsigned Intra-Procedure 03/05/2020 Drea Guadarrama 3:15:00 PM RT(R) Intra-Procedure 03/05/2020 Shelbie Coe RN 3:15:15 PM Intra-Procedure 03/05/2020 Prince Moraes MD 3:18:13 PM 03/06/2020 9:22:08 AM Intra-Procedure 03/06/2020 Prince Moraes MD 9:25:03 AM Signatures Nurse : Shelbie Coe RN Signature : Date : Time : Performing Physician : Signature : Prince Moraes MD Date : Time : Monitor : Drea Young Signature : RT Date : Time : [address] [place] [address]
[2020-03-05 13:06] VITALS: BP 145/82; Ht 182.9 cm; Wt 91.4 kg
[2020-03-05 13:22] LABS: BASOPHILS 0.2 % (0-2); EOSINOPHILS 2.3 % (0-7); HEMATOCRIT 40.1 % (42.0-54.0); HEMOGLOBIN 13.7 g/dL (13.5-17.5); IMMATURE GRANULOCYTES 0.2 % (0-5); LYMPHOCYTES 24.9 % (15-50); MCH 33.3 pg (26.0-34.0); MCHC 34.2 g/dL (31.0-37.0); MCV 97.3 fL (80.0-100.0); MEAN PLATELET VOLUME 9.3 fL (7.4-10.4); MONOCYTES 7.8 % (2-11); NEUTROPHILS 64.6 % (40-80); PLATELET COUNT 162 10x3/uL (130-400); RBC 4.12 10x6/uL (4.20-6.10); RDW 12.7 % (11.5-14.5); WBC 4.4 10x3/uL (4.8-10.8)
[2020-03-05 13:53] LABS: ALT (SGPT) 37 U/L (10-68); CALC OSMOLALITY 281 mosm/kg (275-300); CALCIUM 8.6 mg/dL (8.5-10.1); CARBON DIOXIDE 24.9 mmol/L (21.0-32.0); CHLORIDE - SERUM 106 mmol/L (98-107); CHOL - HDL RATIO 3.9 ratio (2.3-4.9); CHOLESTEROL, TOTAL 237 mg/dL (0-200); CREATININE - SERUM 1.3 mg/dL (0.6-1.3); GLUCOSE 108 mg/dL (74-106); HDL CHOLESTEROL 61 mg/dL (32-96); POTASSIUM - SERUM 3.7 mmol/L (3.5-5.1); SODIUM 140 mmol/L (136-145); UREA NITROGEN 17 mg/dL (7-18); eGFR NON AFRICAN AMERICAN 60 mL/min (90-120)
[2020-03-05 13:55] LABS: TRIGLYCERIDE 535 mg/dL (30-200)
--- NOTE | 2020-03-05 15:25 | NUR ---
PT RECEIVED VIA STRETCHER FROM BRASS CLEANER FOR RECOVERY. PT AWAKE BUT DROWSY, C/O NAUSEA. ZOPHRAN GIVEN IN BRASS CLEANER. EMESIS BAG IN HAND, COOL WASH CLOTH TO FORHEAD. IV PATENT INFUSING VIA ORDERS. PT PLACED ON CARDIAC MONITORS AND O2 VIA NC AT 2L. HR 60, BP 145/80, RR 12, SAT 97. ZYPHER BAND AND IMMOBILIZER TO R WRIST/ARM, CAP REFILL BRISK, ARM PINK AND WARM. PT INSTRUCTED NOT TO USE ARM. HE VERBALIZED UNDERSTANDING. CALL LIGHT IN REACH, AT BS.
[2020-03-05] MEDS ORDERED: PLAVIX75 MG PO (15:34)
--- NOTE | 2020-03-05 15:45 | NUR ---
PT RESTING W/O COMPLAINTS. STATES NAUSEA IS BETTER, TOLERATING PO FLUIDS. VSS. ZBAND AND IMMOBILIZER IN PLACE, NO S/S HEMATOMA OR BLEEDING NOTED. VSS. CALL LIGHT IN REACH, AT BS
--- NOTE | 2020-03-05 16:30 | NUR ---
PT RESTING COMFORTABLY. ZBAND AND IMMOBILIZER IN PLACE, NO S/S HEMATOMA OR BLEEDING NOTED. ARM PINK AND WARM, CAP REFILL BRISK. VSS. CALL LIGHT IN REACH
--- NOTE | 2020-03-05 17:05 | NUR ---
ZBAND AND IMMOBILIZER IN PLACE, NO S/S HEMATOMA OR BLEEDING NOTED. CALL LIGHT IN REACH, AT BEDSIDE.
--- NOTE | 2020-03-05 17:26 | NUR ---
PT CONTINUES TO REST COMFORTABLY. ZBAND IN PLACE, NO S/S HEMATOMA OR BLEEDING. VSS AT PRESENT. PT DENIES NEEDS AT THIS TIME. CALL LIGHT REMAINS IN REACH
--- NOTE | 2020-03-05 18:02 | NUR ---
5CC AIR REMOVED FROM Z BAND, NO BLEEDING OR S/S HEMATOMA NOTED. OFFERED PT SANDWICH, DECLINES AT THIS TIME. O2 REMOVED, SAT 97 ON ROOM AIR. CALL LIGHT IN REACH.
--- NOTE | 2020-03-05 18:30 | NUR ---
3 ADD'L CC AIR REMOVED FROM Z BAND, NO BLEEDING OR SWELLING NOTED.
--- NOTE | 2020-03-05 18:52 | NUR ---
DISCHARGE INSTRUCTIONS REVIEWED W PT AND , EXPLAINED IMPORTANCE OF GETTING PLAVIX FILLED AND STARTING THAT TOMORROW. MEDICATION INFORMATION SHEET GIVEN. BOTH VERBALIZED UNDERSTANDING. IV REMOVED W CATH INTACT, MONITORS REMOVED. PT UP TO DRESS FOR DISCHARGE.
--- NOTE | 2020-03-05 19:07 | NUR ---
1900 PT VOIDING W/O DIFFICULITY. ZBAND REMOVED W/O BLEEDING OR SWELLING NOTED. 2X2 AND SM TEGADERM DRESSING APPLIED, IMMOBILIZER REPOSITIONED. 1904 PT DISCHARGED VIA WC TO WAITING IN PRIVATE VEHICLE. PT HAD ALL BELONGINGS AND DISCHARGE PAPERWORK.
== END 2020-03-05 19:05 | disposition home or self-care (01) ==
LOC: D.CATH 12:05
PROVIDERS: ATTEND Internal Medicine Cardiovascular Disease
DX: I25.119 Atherosclerotic heart disease of native coronary artery with unspecified angina pectoris (principal); R94.39 Abnormal result of other cardiovascular function study; R06.00 Dyspnea, unspecified; I10 Essential (primary) hypertension; R07.9 Chest pain, unspecified

== ENCOUNTER → 2020-04-02 15:46 | Outpatient (CLI) | payer BC ==
[2020-03-05 13:06] VITALS: BMI 27.3
[~2020-04-02 15:46] MED LIST changes: +PLAVIX75 MG PO
== END | disposition home or self-care (01) ==
LOC: D.US 15:30
PROVIDERS: ATTEND Internal Medicine Cardiovascular Disease
DX: I65.29 Occlusion and stenosis of unspecified carotid artery (principal)

== ENCOUNTER 2020-04-06 12:17 | Inpatient (IN) | payer BC ==
[~2020-04-06] VITALS: Ht 182.9 cm; Wt 102.5 kg
[2020-04-09] MEDS ORDERED: VALIUM5 MG (09:13)
[2020-04-09] MEDS ORDERED: XANAX2 MG (09:13)
[2020-04-09 11:30] LABS: APTT 33.3 SECONDS (22.8-39.4); INR 0.96 (0.85-1.17); PROTIME 12.8 SECONDS (11.6-15.0)
[2020-04-09 11:35] LABS: HEMATOCRIT 40.9 % (42.0-54.0); HEMOGLOBIN 13.8 g/dL (13.5-17.5); MCH 33.3 pg (26.0-34.0); MCHC 33.7 g/dL (31.0-37.0); MCV 98.6 fL (80.0-100.0); MEAN PLATELET VOLUME 9.9 fL (7.4-10.4); RBC 4.15 10x6/uL (4.20-6.10); RDW 12.9 % (11.5-14.5); WBC 5.3 10x3/uL (4.8-10.8)
[2020-04-09 11:41] LABS: ALBUMIN 4.2 g/dL (3.4-5.0); ANION GAP 11.5 mmol/L (8-16); BILIRUBIN - TOTAL 0.72 mg/dL (0.2-1.3); CARBON DIOXIDE 28.8 mmol/L (21.0-32.0); CREATININE - SERUM 1.1 mg/dL (0.6-1.3); POTASSIUM - SERUM 4.3 mmol/L (3.5-5.1); PROTEIN - SERUM 7.9 g/dL (6.4-8.2)
[2020-04-09 13:19] LABS: BILIRUBIN NEGATIVE (NEGATIVE); KETONE NEGATIVE (NEGATIVE); NITRITE NEGATIVE (NEGATIVE); UROBILINOGEN NORMAL mg/dL (< 2)
[2020-04-13] VITALS (16 sets, daily range): BP systolic 110–143; BP diastolic 60–85; BMI 27.3; BMI 27.8
[2020-04-13] MEDS ORDERED: BAYER CHEWABLE81 MG PO (08:38)
[2020-04-13] MEDS ORDERED: MERIBIN5 MG PO (08:39)
[2020-04-13] MEDS ORDERED: CRESTOR40 MG PO (12:47)
--- NOTE | 2020-04-13 19:30 | NUR ---
REPORT REC'D AND CARE ASSUMED REC'D PT RESTING IN BED, O2 3LITERS VIA NC, AWAKE, ALERT, ORIENTED, DENIES PAIN EXCEPT WHEN COUGHING, LDLSCL DRSG CDI WITH PLASMALYTE @ 30CC/HR AND ZINACEF INFUSING, LEFT LATERAL CT'S X 2 TO 20CM H2O SUCTION WITH SANGUINOUS DRAINAGE NOTED, EPIDURAL TAPED SECURELY TO BACK INFUSING @ 8CC/HR WITH 5CC Q15MIN PUMP INSTALLER AVAILABLE AND IN REACH, RIGHT RADIAL ORAL SECURED WITH FLEXION BOARD, LEVELED AND ZEROED WITH RETURN OF APPROPRIATE WAVEFORM, LEVIN PATENT DRAINING CLEAR YELLOW URINE, TEDS/SCDS, PPP, AIR OVERLAY MATTRESS IN USE, SR UP X 2, CALL LIGHT IN REACH.
--- NOTE | 2020-04-13 21:00 | NUR ---
AT , BROUGHT PT HIS GLASSES
--- NOTE | 2020-04-13 22:04 | NUR ---
DR. FREIRE PAGED REGARDING ITCHING
--- NOTE | 2020-04-13 22:05 | NUR ---
INFORMED DR. FREIRE OF PATIENT'S COMPLAINTS REGARDING ITCHING, 1 AMP NARCAN ADDED TO NEW BAG OF PLASMALYTE, PLASMALYTE CONTINUES AT 30CC/HR, PT SHAKING FROM EPIDURAL, EXPLAINED TO PT AND THAT THIS WAS A SIDE EFFECT OF THE EPIDURAL.
[2020-04-14] VITALS (24 sets, daily range): BP systolic 108–152; BP diastolic 57–88
[2020-04-14 05:31] LABS: HEMATOCRIT 38.2 % (42.0-54.0); HEMOGLOBIN 12.8 g/dL (13.5-17.5); MCH 33.5 pg (26.0-34.0); MCHC 33.5 g/dL (31.0-37.0); MEAN PLATELET VOLUME 9.3 fL (7.4-10.4); RBC 3.82 10x6/uL (4.20-6.10); RDW 13.1 % (11.5-14.5); WBC 6.5 10x3/uL (4.8-10.8)
[2020-04-14 05:47] LABS: ALBUMIN 3.3 g/dL (3.4-5.0); BILIRUBIN - TOTAL 0.96 mg/dL (0.2-1.3); CALCIUM 7.7 mg/dL (8.5-10.1); CARBON DIOXIDE 26.7 mmol/L (21.0-32.0); CREATININE - SERUM 1.3 mg/dL (0.6-1.3); POTASSIUM - SERUM 3.7 mmol/L (3.5-5.1); PROTEIN - SERUM 6.7 g/dL (6.4-8.2)
--- NOTE | 2020-04-14 10:10 | OP ---
PATIENT NAME: KATE RITTER MEDICAL RECORD: [id number] :56 LOCATION:[facility] ADMISSION DATE:04/13/20 SURGEON: NORBERTO MIMS MD DATE OF OPERATION: 04/13/2020 SURGEON: Norberto Mims MD PROCEDURE PERFORMED: Left thoracotomy with left lower lobe lobectomy, mediastinal lymph node dissection and bronchoscopy. 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 ANESTHESIA: Double lumen general endotracheal anesthesia. ESTIMATED BLOOD LOSS: 150 cc. COMPLICATIONS: None. SPECIMENS: 1. Left lower lobe. 2. Lymph node stations from inferior pulmonary ligament interlobar and peribronchial. CONDITION: Stable. DISPOSITION: ICU. OPERATIVE FINDINGS: 1. No evidence of chest wall invasion, the pleural based tumor was about 3 cm in size. There was no significant effusion. The lymph nodes appeared to be anthracotic, in fact no sizable lymph node in the subcarinal or aortopulmonary window lymph node stations could be found. 2. Good reexpansion and no air leak. 3. Cryoablation nerve root for postoperative pain control. INDICATION: Nonsmall cell lung cancer. DESCRIPTION OF PROCEDURE: The patient was brought to the operating suite, double lumen general endotracheal anesthesia was obtained, and bronchoscopy confirmed the position. The patient turned to the right lateral decubitus position with appropriate padding. Left chest prepped and draped. Lateral thoracotomy was made. A section of the 6th rib posterior was removed to allow a trap door type incision. The chest was entered and the lung was free from the chest wall. There was no significant effusion. The fissure was dissected out as were the large pulmonary artery branches. Pulmonary vein was dissected out. Inferior pulmonary ligament was freed as well as the hilum. Pulmonary artery branches were divided. Pulmonary vein was divided. Bronchus was clamped and then divided after confirming ventilation of the upper lobe. Lymph node stations were removed. Thorough irrigation was undertaken. The bronchial stump was airtight under water. It was then oversewn with Vicryl. The pulmonary artery branch to the superior segment of the left lower lobe was also oversewn with Prolene. Chest tubes were placed to the apex and posteriorly and chest was closed with pericostal sutures, two muscle layers, subcutaneous and OPERATIVE REPORT [id number] GREEN,KATE CONNER subcuticular. Dermabond was placed. Needle and sponge counts were reported as correct. The patient was taken to ICU, stable. TRANSINT:[id number] Voice Confirmation ID: [id number] DOCUMENT ID: [id number] NORBERTO MIMS MD at 1010 CC: SUNIL NELSON and DOMENICO RIBERA [phone] DICTATION DATE: 04/13/20 142 ACCOUNTING OFFICER: 04/13/20 2321 ADM IN [facility] [address] [place] [address]
--- NOTE | 2020-04-14 13:40 | NUR ---
R RADIAL ART LINE DCD. PT DANGLED AT BS APPROX 20MIN.
--- NOTE | 2020-04-14 15:02 | NUR ---
PT CO PAIN TO TOP OF R FOOT CONSISTENT WITH HX OF GOUT. PAGED DR STEINBERG. AWAITING CALL BACK.
--- NOTE | 2020-04-14 15:11 | NUR ---
REC'D CALL BACK FROM DR STEINBERG. REC'D ORDER FOR CHOLCHINE. PT STATES THAT HE DOES NOT WANT THIS MED BECAUSE GIVES DIARRHEA.
--- NOTE | 2020-04-14 18:54 | NUR ---
TEMP 101.4. REPORTED TO DR MIMS. REC'D ORDER FOR TYLENOL.
--- NOTE | 2020-04-14 19:15 | NUR ---
REC'D PT WITH AT BS BATHING PATIENT, ASSISTED AM NURSE WITH COMPLETION OF BATH AND LINEN CHANGE, PT'S TEMP 102.2 @ THIS TIME, DR. MIMS AWARE, CM-SR 115, PT ANXIOUS REGARDING FEVER, EXPLAINED TO PATIENT THIS WAS A NORMAL OCCURENCE, ENCOURAGED PT TO USE INCENTIVE SPIROMETER AND DEEP BREATH AND COUGH, LDLSCL DRSG CDI WITH PLASMALYTE @ 30CC/HR INFUSING, LEFT LATERAL CT'S X 2 TO 20CM H2O SUCTION, SEROUS DRAINAGE PRESENT, NO AIR LEAK NOTED, LEVIN PATENT DRAINING CLEAR YELLOW URINE, BILAT TEDS AND SCDS, IBRAHIMA OFF RIGHT LEG PER PATIENT REQUEST AT THIS TIME, EPIDURAL INFUSING @ 8CC/HR WITH 5 CC Q15MIN MARKETING LIAISON, DENIES NEEDS AT THIS TIME.
--- NOTE | 2020-04-14 19:50 | NUR ---
PT'S AT DESK REQUESTING PT BE GIVEN SOMETHING FOR ANXIETY, CONCERNED ABOUT HEART RATE BEING 115, EXPLAINED TO THAT HR WAS IN PART DUE TO PT HAVING A FEVER AND THE DOCTOR WOULD NOT PRESCRIBE ANYTHING THAT WOULD SEDATE THE PATIENT WHILE STILL HAD THE EPIDURAL INFUSING, VERBALIZED UNDERSTANDING.
--- NOTE | 2020-04-14 20:00 | NUR ---
650MG TYLENOL GIVEN FOR TEMP 102.2
[2020-04-15] VITALS (24 sets, daily range): BP systolic 119–144; BP diastolic 56–86
[2020-04-15 06:44] LABS: HEMATOCRIT 33.5 % (42.0-54.0); HEMOGLOBIN 11.3 g/dL (13.5-17.5); MCH 33.4 pg (26.0-34.0); MCHC 33.7 g/dL (31.0-37.0); MCV 99.1 fL (80.0-100.0); MEAN PLATELET VOLUME 9.5 fL (7.4-10.4); RBC 3.38 10x6/uL (4.20-6.10); RDW 12.9 % (11.5-14.5); WBC 6.2 10x3/uL (4.8-10.8)
[2020-04-15 07:01] LABS: ALBUMIN 2.8 g/dL (3.4-5.0); BILIRUBIN - TOTAL 0.77 mg/dL (0.2-1.3); CALCIUM 7.8 mg/dL (8.5-10.1); CARBON DIOXIDE 27.7 mmol/L (21.0-32.0); CREATININE - SERUM 1.2 mg/dL (0.6-1.3); PROTEIN - SERUM 6.5 g/dL (6.4-8.2)
[2020-04-15 07:06] LABS: ANION GAP 10.4 mmol/L (8-16)
[2020-04-15 07:07] LABS: POTASSIUM - SERUM 3.1 mmol/L (3.5-5.1)
--- NOTE | 2020-04-15 09:59 | NUR ---
POSTERIOR CT COLLECTION CHAMBER ALMOST FULL. CT COLLECTION CHAMBER CHANGED PER [employer] TECH. TUBES DRAINING INTO NEW COLLECTION CHAMBERS WITH OUT DIFFICULTY AND 20CM SUCTION ORDERED. SPO2 89% THIS AM. O22LNC PLACED. SPO2 95%. PT IS USING I.S. PULLS [address] ACEVES HERE AND REFILLED EPIDURAL.
--- NOTE | 2020-04-15 13:45 | NUR ---
DR MIMS DCD SUCTION TO CT ON ROUNDS.
[2020-04-16] VITALS (24 sets, daily range): BP systolic 102–154; BP diastolic 55–95; Ht 182.9 cm; Wt 102.5 kg
[2020-04-16 06:29] LABS: HEMATOCRIT 29.5 % (42.0-54.0); HEMOGLOBIN 9.8 g/dL (13.5-17.5); MCHC 33.2 g/dL (31.0-37.0); MCV 99.3 fL (80.0-100.0); MEAN PLATELET VOLUME 9.3 fL (7.4-10.4); RBC 2.97 10x6/uL (4.20-6.10)
[2020-04-16 06:36] LABS: WBC 4.3 10x3/uL (4.8-10.8)
[2020-04-16 06:55] LABS: ALBUMIN 2.4 g/dL (3.4-5.0); ANION GAP 7.5 mmol/L (8-16); BILIRUBIN - TOTAL 0.53 mg/dL (0.2-1.3); CALCIUM 7.9 mg/dL (8.5-10.1); CARBON DIOXIDE 28.5 mmol/L (21.0-32.0); CREATININE - SERUM 1.1 mg/dL (0.6-1.3); PROTEIN - SERUM 6.1 g/dL (6.4-8.2)
--- NOTE | 2020-04-16 13:19 | NUR ---
BESIDE REPORT RECEIVED. ASSESSED PT. PT C/O ABDOMEN PAIN CAUSED BY NO BOWEL MOVEMENT SINCE THURSDAY. INFORMED PT THAT WHEN THE DOCTOR CAME BY THIS NURSE WOULD ASK FOR SOMETHING TO HELP HIS BOWELS MOVE. WILL CONT TO MONITOR.
--- NOTE | 2020-04-16 15:00 | NUR ---
AT BEDSIDE, PULLED ANTERIOR CHEST TUBE. WILL CONT TO MONITOR.
--- NOTE | 2020-04-16 15:00 | NUR ---
PT HAS TEMPERATURE OF 103.2, NOTIFIED SAMMY WARREN- 'S NURSE. WILL CONT TO MONITOR.
--- NOTE | 2020-04-16 15:57 | NUR ---
RECHECKED TEMPERATURE AFTER TYLENOL GIVEN, TEMPERATURE IS STILL 103.2 NOTIFIED.
--- NOTE | 2020-04-16 16:51 | NUR ---
LEVIN TAKEN OUT PER ORDERS. PT TOLERATED WELL, TIP INTACT. WILL CONT TO MONITOR.
[2020-04-17] VITALS (24 sets, daily range): BP systolic 102–153; BP diastolic 54–79
[2020-04-17 06:05] LABS: HEMATOCRIT 31.1 % (42.0-54.0); HEMOGLOBIN 10.4 g/dL (13.5-17.5); MCHC 33.4 g/dL (31.0-37.0); MCV 98.7 fL (80.0-100.0); MEAN PLATELET VOLUME 9.4 fL (7.4-10.4); RBC 3.15 10x6/uL (4.20-6.10); RDW 13.2 % (11.5-14.5); WBC 3.5 10x3/uL (4.8-10.8)
[2020-04-17 06:15] LABS: ALBUMIN 2.4 g/dL (3.4-5.0); ANION GAP 8.7 mmol/L (8-16); BILIRUBIN - TOTAL 0.46 mg/dL (0.2-1.3); CALCIUM 8.5 mg/dL (8.5-10.1); CARBON DIOXIDE 27.7 mmol/L (21.0-32.0); CREATININE - SERUM 1.1 mg/dL (0.6-1.3); POTASSIUM - SERUM 3.4 mmol/L (3.5-5.1); PROTEIN - SERUM 6.8 g/dL (6.4-8.2)
--- NOTE | 2020-04-17 07:27 | NUR ---
Shift report received. Alert and oriented. On room air 92% o2 sat. Slightly tachycardic. Oral temp 100.4. L-sub CVL with plasmolyte at 30ml/hr. Epidural in place. CT X 1 to left lateral side, water seal, serous drainage noted. Used urinal. 500ml yellow urine noted at this time. Rash noted to abdomen and left under arm. Safety measures in place. Room temperature turned down per pt request. No further needs at this time. Will continue to monitor.
--- NOTE | 2020-04-17 09:00 | NUR ---
Assited up to bedside commode. No bm at this time. Transferred from bedside commode to chair. Tolerated well. Ct remains in place. No further needs at this time. Will continue to monitor.
--- NOTE | 2020-04-17 17:00 | NUR ---
pt sitting up in chair, dinner tray served, at bedside, no needs voiced
[2020-04-18] VITALS (17 sets, daily range): BP systolic 125–155; BP diastolic 62–83
[2020-04-18 05:41] LABS: MCH 33.4 pg (26.0-34.0); MCHC 33.9 g/dL (31.0-37.0); MCV 98.5 fL (80.0-100.0); MEAN PLATELET VOLUME 9.9 fL (7.4-10.4); RDW 12.8 % (11.5-14.5)
[2020-04-18 05:47] LABS: HEMATOCRIT 39.2 % (42.0-54.0); HEMOGLOBIN 13.3 g/dL (13.5-17.5); RBC 3.98 10x6/uL (4.20-6.10)
[2020-04-18 06:12] LABS: ALBUMIN 2.2 g/dL (3.4-5.0); ANION GAP 12.4 mmol/L (8-16); BILIRUBIN - TOTAL 0.28 mg/dL (0.2-1.3); CALCIUM 8.2 mg/dL (8.5-10.1); CARBON DIOXIDE 25.8 mmol/L (21.0-32.0); CREATININE - SERUM 1.2 mg/dL (0.6-1.3); POTASSIUM - SERUM 3.2 mmol/L (3.5-5.1); PROTEIN - SERUM 6.5 g/dL (6.4-8.2)
--- NOTE | 2020-04-18 08:00 | NUR ---
UP IN CHAIR AT BEDSIDE FOR BREAKFAST. UNSTEADY GAIT. CHEST TO WATER SEAL DRAINAGE SEROUS DRAINAGE IN TUBING. DRESSING DRY AND INTACT. SUBCLAVAIN LEFT INFUSING WITH PLASAMALYTE AT 30 ML HOUR. DENIES NEED FOR PAIN MEDS. AWAKE AND ALERT. SKIN WARM AND DRY. 1500 ML ON INCENTIVE SPIROMETRY.
--- NOTE | 2020-04-18 09:00 | NUR ---
HERE. AMBULATE TO BATHROOM. GAIT MUCH BETTER. SMALL BM. TOLERATED WELL NO SHORTNESS OF BREATH NOTED
--- NOTE | 2020-04-18 09:56 | NUR ---
CHEST TUBE REMOVED PER DR. MIMS. VASELINE GAUZE APPLIED TEDGRADERM OVER 4X4 DRESSING. PERIPHERAL IV LEFT WRIST REMOVED. LEFT SUBCLAVIAN CATHETER REMOVED. PATIENT TOLERATED WELL.
--- NOTE | 2020-04-18 10:23 | NUR ---
NUTRITION F/U CHART REVIEWED. PT TOLERATING REG DIET WITH 100% INTAKE RECENT MEALS. +BM NOTED. WILL CONTINUE TO PROVIDE DIET, HONOR FOOD PREFERENCES. RD FOLLOWING
[2020-04-18] MEDS ORDERED: PERCOCET 5-3251 TAB PO (15:15)
--- NOTE | 2020-04-18 16:55 | NUR ---
PATIENT DISCHARGE HOME WITH PER WHEEL CHAIR. DISCHARGE INSTRUCTIONS REVIEWED WITH PATIENT VERBALIZED UNDERSTANDING. BACK DRESSING REMOVED. ALL DRESSINGS DRY AND INTACT.
--- NOTE | 2020-04-18 17:50 | MORECARE ---
CASE MANAGEMENT DISCHARGE SUMMARY PATIENT: KATE RITTER CONNER UNIT: [id number] ADM DATE: 04/13/20 AGE: 59 : 56 SEX: M [facility] AUTHOR: SPEEDY VALERIO PHYSICIAN: REFERRING PHYSICIAN: ZIGGY MIMS MD DATE OF SERVICE: 04/18/20 Discharge Plan Patient Name: KATE RITTER [facility] [facility] 1960 Planned Disposition: Home Anticipated Discharge Date: 04/18/20 Discharge Date: 04/18/2020 Expected LOS: 5 Initial Reviewer: [email or web address] Initial Review Date: 04/13/2020 Generated: 04/18/20 6:50 pm Patient Name: KATE RITTER Page [id number] at 1750 All edits/amendments must be made on the electronic document DICTATION DATE: 04/18/201749 TUBER MACHINE OPERATOR: PRIMITIVO 04/18/201749 RPT#: [id number] DC DATE:04/18/20 STATUS: DIS IN [facility] [address] [place] [address] END OF REPORT
--- NOTE | 2020-04-18 17:58 | MORECARE ---
CASE MANAGEMENT DISCHARGE SUMMARY PATIENT: KATE RITTERAN UNIT: [id number] ADM DATE: 04/13/20 AGE: 59 : 56 SEX: M ROOM/BED: D[facility] AUTHOR: SPEEDY VALERIO PHYSICIAN: REFERRING PHYSICIAN: ZIGGY MIMS MD DATE OF SERVICE: 04/18/20 Discharge Plan Patient Name: KATE RITTER Facility: [facility]:[place] : 1960 Planned Disposition: Home Anticipated Discharge Date: 04/18/20 Discharge Date: 04/18/2020 Expected LOS: 5 Initial Reviewer: [email or web address] Initial Review Date: 04/13/2020 Generated: 04/18/20 6:58 pm Comments DCP- Discharge Planning Updated by [email or web address]: Samara Peters on 04/18/20 4:[address] LATE ENTRY 1445 PATIENT FOR DISCHARGE TO HOME TODAY. HE HAD CXR DONE THIS AM. HE IS AWAITING READING THIS AFTERNOON AND FOR DR MIMS TO ROUND W/ PLANNED D/C. PATIENT AMBULATING WELL. O2 SATS GOOD ON RM AIR. CM TO THE BEDSIDE. HE IS VERY ANXIOUS FOR DISCHARGE TO HOME. HAS TRANSPORTATION. DENIES ANY NEEDS. PATIENT IS [employer] OF LOC[employer]. STATES HE WAS VERY PLEASED WITH HIS CARE. CM EXPLAINED DISCHARGE IMM. SIGNATURE OBTAINED AT 1445. HARD COPY TO THE PATIENT HARD COVER CHART. SIGNED COPY ALSO GIVEN TO THE PATIENT. SPOKE WITH PRIMARY NURSE. Coverage Notice Reviewer: [email or web address] - Samara Peters Notice Issued Date-Time: 04/18/2020 14:45 Notice Type: IM Discharge Notice Notice Delivered To: Patient Relationship to Patient: Self [employer] Name: Delivery Method: HAND - Hand Delivered Ashley Days: Prior Verbal Notification: Recipient Understood Notice: Yes Recipient Signature: Yes Med Rec Note Co-signed by Attending: Coverage Notice Comment: DISCHARGE IMM SERVED. EXPLAINED BY CM. HARD COPY SIGNED AND TO THE CHART. HARD COPY SIGNED ANG GIVEN TO THE PATIENT. Last DP export: 04/18/20 4:50 p Patient Name: KATE RITTER Page [phone] at 1758 All edits/amendments must be made on the electronic document DICTATION DATE: 04/18/201757 COUNSELING SERVICES DIRECTOR: PRIMITIVO 04/18/201757 RPT#: [id number] DC DATE:04/18/20 STATUS: DIS IN [facility] [address] [place] [address] END OF REPORT
== END 2020-04-18 16:54 | disposition home or self-care (01) | DRG 165 ==
LOC: D.SDCHOLD 04-12 07:30 → D.CVICU 04-13 07:38
PROVIDERS: ADMIT Thoracic Surgery (Cardiothoracic Vascular Surgery); ATTEND Thoracic Surgery (Cardiothoracic Vascular Surgery)
PROC: 07B70ZZ Excision of Thorax Lymphatic, Open Approach (ICD-10-PCS; 2020-04-13)
PROC: 0BTJ0ZZ Resection of Left Lower Lung Lobe, Open Approach (ICD-10-PCS; principal; 2020-04-13 20:15)
DX: C34.32 Malignant neoplasm of lower lobe, left bronchus or lung (principal); R50.9 Fever, unspecified; I10 Essential (primary) hypertension; E78.5 Hyperlipidemia, unspecified; J45.909 Unspecified asthma, uncomplicated; K21.9 Gastro-esophageal reflux disease without esophagitis; Z87.891 Personal history of nicotine dependence

== ENCOUNTER 2020-04-21 12:15 | Emergency (ER) | payer BC ==
[~2020-04-21 12:15] MED LIST changes: +BAYER CHEWABLE81 MG PO; +CRESTOR40 MG PO; +MERIBIN5 MG PO; +VALIUM5 MG; +XANAX2 MG
[2020-04-21 12:21] VITALS: BP 131/80; Ht 182.9 cm
[2020-04-21 13:48] LABS: ANION GAP 10.3 mmol/L (8-16); CALCIUM 8.9 mg/dL (8.5-10.1); CARBON DIOXIDE 27.3 mmol/L (21.0-32.0); CREATININE - SERUM 1.5 mg/dL (0.6-1.3); POTASSIUM - SERUM 4.6 mmol/L (3.5-5.1)
[2020-04-21 13:52] LABS: HEMATOCRIT 23.7 % (42.0-54.0); HEMOGLOBIN 8.9 g/dL (13.5-17.5); LYMPHOCYTES 25.6 % (15-50); MCH 36.5 pg (26.0-34.0); MCHC 37.6 g/dL (31.0-37.0); MCV 97.1 fL (80.0-100.0); MEAN PLATELET VOLUME 8.7 fL (7.4-10.4); NEUTROPHILS 58.5 % (40-80); RBC 2.44 10x6/uL (4.20-6.10); RDW 11.8 % (11.5-14.5)
[2020-04-21 13:53] LABS: PLATELET COUNT 280 10x3/uL (130-400)
[2020-04-21 13:54] LABS: ALBUMIN 3.1 g/dL (3.4-5.0); BILIRUBIN - TOTAL 0.31 mg/dL (0.2-1.3); PROTEIN - SERUM 7.7 g/dL (6.4-8.2); URIC ACID 7.3 mg/dL (2.6-7.2)
[2020-04-21 14:01] LABS: APTT 33.7 SECONDS (22.8-39.4); INR 0.97 (0.85-1.17); PROTIME 12.9 SECONDS (11.6-15.0)
[2020-04-21 14:09] LABS: D-DIMER-QUANTITATIVE 2.54 ug/mLFEU (0.20-0.54)
[2020-04-21] MEDS ORDERED: PREDNISONE50 MG PO (15:16)
== END 2020-04-21 15:30 | disposition home or self-care (01) ==
LOC: D.ER 12:15
PROVIDERS: Family Medicine
DX: M79.18 Myalgia, other site (principal); D64.9 Anemia, unspecified; M71.20 Synovial cyst of popliteal space [Baker], unspecified knee; R79.89 Other specified abnormal findings of blood chemistry; M79.662 Pain in left lower leg; M79.661 Pain in right lower leg; J45.909 Unspecified asthma, uncomplicated; I10 Essential (primary) hypertension; K21.9 Gastro-esophageal reflux disease without esophagitis

== ENCOUNTER 2020-12-10 15:07 | Emergency (ER) | payer BC ==
[~2020-12-10] VITALS: Ht 182.9 cm; Wt 93.2 kg
[~2020-12-10 15:07] MED LIST changes: +PREDNISONE50 MG PO
[2020-12-10 15:09] VITALS: Ht 182.9 cm; Wt 93.2 kg
[2020-12-10 15:35] LABS: BASOPHILS 0.5 % (0-2); EOSINOPHILS 2.1 % (0-7); HEMATOCRIT 42.4 % (42.0-54.0); HEMOGLOBIN 14.4 g/dL (13.5-17.5); LYMPHOCYTES 13.9 % (15-50); MCH 33.4 pg (26.0-34.0); MCHC 33.9 g/dL (31.0-37.0); MCV 98.5 fL (80.0-100.0); MEAN PLATELET VOLUME 7.8 fL (7.4-10.4); MONOCYTES 8.7 % (2-11); NEUTROPHILS 74.8 % (40-80); RDW 14.3 % (11.5-14.5); WBC 6.3 10x3/uL (4.8-10.8)
[2020-12-10 15:37] LABS: PLATELET COUNT 135 10x3/uL (130-400)
[2020-12-10 16:00] LABS: CALC OSMOLALITY 277 mosm/kg (275-300); CALCIUM 8.2 mg/dL (8.5-10.1); CARBON DIOXIDE 20.5 mmol/L (21.0-32.0); CHLORIDE - SERUM 102 mmol/L (98-107); CREATININE - SERUM 1.2 mg/dL (0.6-1.3); GLUCOSE 97 mg/dL (74-106); POTASSIUM - SERUM 3.7 mmol/L (3.5-5.1); SODIUM 138 mmol/L (136-145); UREA NITROGEN 17 mg/dL (7-18); eGFR NON AFRICAN AMERICAN 65 mL/min (90-120)
[2020-12-10 16:09] LABS: ALBUMIN 3.7 g/dL (3.4-5.0); ALKALINE PHOSPHATASE 63 U/L (30-120); ALT (SGPT) 40 U/L (10-68); BILIRUBIN - TOTAL 0.57 mg/dL (0.2-1.3); PROTEIN - SERUM 7.1 g/dL (6.4-8.2)
[2020-12-10 16:16] LABS: TROPONIN-I < 0.017 ng/mL (0.000-0.060)
[2020-12-10 16:57] VITALS: BP 131/76
== END 2020-12-10 16:57 | disposition home or self-care (01) ==
LOC: D.ER 15:07
PROVIDERS: Student in an Organized Health Care Education/Training Program
DX: R07.9 Chest pain, unspecified (principal); I10 Essential (primary) hypertension; E78.5 Hyperlipidemia, unspecified; K21.9 Gastro-esophageal reflux disease without esophagitis